=== PATIENT | female | born 1945 | race Caucasian/White ===

== ENCOUNTER → 2023-11-26 15:40 | Outpatient (REF) | payer MEDICARE, OTHER, SELFPAY ==
[2023-11-26 16:48] LABS: Erythrocyte Sed Rate 20 mm/hour (0-20)
[2023-11-28 14:31] LABS: Lyme Antibody Screen, EIA Negative (Negative); Rheumatoid Agglutinin Less Than 10 IU (<10 IU)
[2023-11-29 01:19] LABS: CCP Antibody IgG/IgA 2 Units (0-19)
[2023-11-29 07:13] LABS: ANA, IgG Reflex to HEp-2 None Detected (None Detected)
== END ==
LOC: REG 15:40
PROVIDERS: ATTENDING PHYSICIAN Student in an Organized Health Care Education/Training Program
DX: M15.4 Erosive (osteo)arthritis (principal); M25.50 Pain in unspecified joint
CPT/HCPCS: 36415; 85652; 86038; 86140; 86200; 86430; 86618; 86666; 86753

== ENCOUNTER 2025-04-12 18:14 | Emergency (ER) | payer MEDICARE, OTHER, SELFPAY ==
[2025-04-12 18:15] VITALS: BP 191/93
--- NOTE | 2025-04-12 19:16 | ED.GENMED ---
History of Present Illness
General
Chief Complaint: Throat Problem
Source: patient
Time Seen by Provider: 04/12/25 19:06
History of Present Illness
History of Present Illness:
79-year-old female presents emergency department complaints of feeling like something is stuck in her throat since eating boneless chicken last night. She was unable to finish her meal last night because of this sensation. This morning, she did
tolerate some yogurt, otherwise she has not had anything to eat or drink until tonight when she tried to drink water and probably vomited back up. She denies a foreign body sensation but says she just cannot fully swallow without vomiting. She
denies chest pain, neck pain, headache, dizziness, dyspnea, abdominal pain, nausea, or other complaints.
Past History
Past History
ED Past Medical History: Cancer (Lymphoma) and Other (Diverticulosis, osteoarthritis)
ED Past Surgical History: Appendectomy, Gynecological (Hysterectomy) and Other (Exploratory laparotomy, multiple breast surgeries)
Social History
Tobacco: Non-smoker
Alcohol: Daily
Drug: None
Personal:
Living: alone
Employment: Employed
Phy Exam
Physical Exam
Physical Exam:
GENERAL: Alert , in no apparent distress
EYE: pupils equal and reactive
NECK: Supple, no significant adenopathy.
ENT: o/p clr, mmm, no trismus, no drool, voice clear, no swelling noted.
CARDIAC: Regular rate and rhythm .
LUNGS: Clear breath sounds bilaterally, no acute respiratory distress, no wheezes/rales/rhonchi
ABDOMEN: Soft, without focal tenderness, no r/g, no cvat
NEUROLOGICAL: Alert and oriented, no focal neuro deficits
SKIN: Warm and dry, skin intact.
MUSCULOSKELETAL: No edema, well perfused.
PSYCH: Normal and appropriate interaction.
Course
Orders/Labs/Results
Orders:
Orders
04/12/25 19:20
Mag Hydrox/Al Hydrox/Simeth [Maalox] 30 ml Phenobarb/Hyoscy/Atropine/Scop [] 10 ml Viscous Lidocaine 2% [Xylocaine Viscous Cup] 10 ml PO NOW
Neck Soft Tissue [CR Soft Tissue Neck ] Urgent
Comment:
Reason For Exam: trouble swallowing
04/12/25 19:28
Mag Hydrox/Al Hydrox/Simeth [Maalox] 30 ml .ROUTE .STK-MED ONE
Phenobarb/Hyoscy/Atropine/Scop [] 10 ml .ROUTE .STK-MED ONE
Viscous Lidocaine 2% [Xylocaine Viscous Cup] 15 ml .ROUTE .STK-MED ONE
Vital Signs
Initial and Last Documented VS:
Initial Vital Signs
Temp Pulse Resp BP Pulse Ox
98.0 F 72 18 191/ 98
04/12/25 18:15 04/12/25 18:15 04/12/25 18:15 04/12/25 18:15 04/12/25 18:15
Last Documented Vital Signs
Temp Pulse Resp BP Pulse Ox
98.0 F 72 18 191 98
04/12/25 18:15 04/12/25 18:15 04/12/25 18:15 04/12/25 18:15 04/12/25 19:18
*Pulse Oximetry
SaO2: 98
Oxygen Mode of Delivery: Room air
Update Note
Update Note:
Patient presents to the Emergency Department with ___trouble swallowing
Number and Complexity of Problems Addressed at the Encounter
� Chronic conditions affecting care:
� Acute Exacerbation and/or Progression of Chronic Illness:
� Differential Diagnosis includes: But not limited to esophageal abrasion, food impaction, reflux, achalasia, etc. etc.
Amount and/or Complexity of Data to be Reviewed and Analyzed
� I performed an independent evaluation of and my interpretation is:
EKG:
CT:
Xrays: Soft tissue neck read by me NAD
Laboratory Studies:
Other:
� Review of other/old records reveals:
� Clinical information was obtained by an independent historian:
� Prescriptions/Medications Considered but not given:
� Further testing considered but not performed:
Risk of Complications and/or Morbidity or Mortality of Patient Management
� Social determinants of health affecting care:
� Discussion with other providers (PCP, Hospitalists, Consultants, etc):
� Escalation of care including admission/observation vs risk of discharge considered: 8:30 PM patient sitting upright in a chair, reading a book/magazine, comfortable in no distress, no drooling, voice clear, neuro intact. She
still has a slight sense like something is there, however drink a full glass of water here without vomiting. Discussed with patient importance of close follow-up and reasons return to the ER. Will refer to GI may potentially need an outpatient EGD
on a nonemergent basis. I also recommended she start Pepcid. No cp/sob/diaphoresis/n/v/cad hx to suggest acs.
ED Attending Note
-
Portions of this chart may have been created with voice recognition software.� Occasional wrong word or��sound alike� substitutions may have occurred due to the inherent limitations of voice recognition software.
Discharge Plan
Departure
Patient Disposition: Home (Routine Discharge)
Date of Disposition: 04/12/25
Time of Disposition: 20:31
Patient with high blood pressure during this ER visit?: Yes
Condition: Good
Discharge Problem:
Dysphagia
Instructions: Dysphagia (DC), BLOOD PRESSURE
Prescriptions:
No Action
multivitamin [One Daily] 1 EACH tablet
1 ea PO DAILY
ascorbic acid (vitamin C) [Vitamin C] 1,000 MG tablet
1,000 mg PO DAILY
calcium carbonate 600 MG tablet
600 mg PO DAILY
docosahexaenoic acid-epa 1 CAP capsule
1 cap PO DAILY
aslhqrlq-dhzbp-zpb 149-hyal ac 1 EACH tablet
1 ea PO DAILY
polyethylene glycol 3350 17 GRAMS powder in packet
17 grams PO DAILY Qty: 30 0RF
ferrous sulfate [FeroSul] 325 MG tablet
325 mg PO DAILY Qty: 30 0RF
Rx Instructions:
stop if worsens constipation
docusate sodium 100 MG capsule
100 mg PO BID Qty: 60 0RF
vancomycin [Vancocin] 125 MG capsule
125 mg PO Q6H Qty: 40 0RF
Referrals:
Juli Pham MD [Family Provider, Internal Medicine]
Margaret Briones DO [Active, Gastroenterology] - Next open appointment
Activity Restrictions/Additional Instructions:
IF YOU DEVELOP TROUBLE SWALLOWING LIQUIDS, TROUBLE SWALLOWING SOLIDS, VOMITING, THROAT PAIN, DROOLING, SHORTNESS OF BREATH, CHEST PAIN, SWELLING, FEVER, OR OTHER WORRISOME SIGNS, PLEASE RETURN TO THE ER IMMEDIATELY!
Interventions
Interventions:
*Risk Screen - Suicide Last Done: 04/12/25 19:49
*General Assessment Last Done: 04/12/25 19:49
*Neglect/Abuse Screening Last Done: 04/12/25 19:49
*ED- Fall Risk Assessment Last Done: 04/12/25 19:49
*ED COVID-19 Vaccine History Last Done: 04/12/25 19:49
*ED Influenza Vaccine History Last Done: 04/12/25 19:49
ED-EENT Assessment Last Done: 04/12/25 19:35
ED- Pulmonary Assessment Last Done: 04/12/25 19:35
Discharge Date and Time
Print Language: URDU
[2025-04-12] MEDS: MAALOX 50 PO (19:31)
[2025-04-12 19:49] VITALS: BMI 19.1
[2025-04-12 20:41] VITALS: BP 129/89
== END 2025-04-12 20:42 | disposition home or self-care (01) ==
LOC: EMR 18:14
PROVIDERS: EMERGENCY PHYSICIAN Emergency Medicine; FAMILY PHYSICIAN Student in an Organized Health Care Education/Training Program
DX: R13.10 Dysphagia, unspecified (principal); I25.10 Atherosclerotic heart disease of native coronary artery without angina pectoris; Z85.72 Personal history of non-Hodgkin lymphomas; Z90.49 Acquired absence of other specified parts of digestive tract; Z90.710 Acquired absence of both cervix and uterus
CPT/HCPCS: 99283; 70360